=== PATIENT | male | born 1980 | race Two or more races ===

== ENCOUNTER 2019-06-02 00:15 | Emergency (ER) | payer SELFPAY ==
[2019-06-02] MEDS ORDERED: KETOROLAC TROMETHAMINE INJ/PF 30 MG/1 ML SDV IV ONE (02:36)
[2019-06-02] MEDS ORDERED: DEXAMETHASONE SOD PHOS INJ 10 MG/1 ML VIAL IV ONE (02:36)
[2019-06-02] MEDS ORDERED: METHOCARBAMOL INJ/PF 1000 MG/10 ML SDV IV ONE (02:38)
--- NOTE | 2019-06-02 02:39 | ER Document Report ---
ED Neck/Back Problem - General Chief Complaint: Neck Problem Stated Complaint: NECK PAIN Time Seen by Provider: 06/02/19 02:27 Mode of Arrival: Ambulatory Information source: Patient Notes: This 38-year-old man presents to the emergency department with a long history of torticollis with associated muscle spasm and pain. States that for years he has taken Botox shots for relief, however, he is now uninsured and has not had treatment for over a year. He states that he went back to work last week and the symptoms have worsened. He complains of severe pain in the right side of his neck radiating into the upper shoulder area with severe pain with movement. He denies neurologic functional loss or weakness in his lower extremities or incontinence of urine or stool. - Related Data Allergies/Adverse Reactions: venom-honey bee Allergy (Verified 05/23/19 17:02) Past Medical History - Social History Smoking Status: Current Every Day Smoker Family History: Reviewed & Not Pertinent Patient has suicidal ideation: No Patient has homicidal ideation: No Review of Systems - Review of Systems Notes: Constitutional: Negative for fever. HENT: + Neck pain with right shoulder pain Eyes: Negative for visual changes. Cardiovascular: Negative for chest pain. Respiratory: Negative for shortness of breath. Gastrointestinal: Negative for abdominal pain, vomiting or diarrhea. Genitourinary: Negative for dysuria. Musculoskeletal: Negative for back pain. Skin: Negative for rash. Neurological: Negative for headaches, weakness or numbness. 10 point ROS negative except as marked above and in HPI. Physical Exam - Vital signs Vitals: Temp Pulse Resp BP Pulse Ox 98.5 F 88 18 139/83 H 96 06/02/19 00:26 06/02/19 00:26 06/02/19 00:26 06/02/19 00:26 06/02/19 00:26 - Notes Notes: PHYSICAL EXAMINATION: Physical Exam: General: Well-nourished well-developed in no acute distress HEENT: NC/AT, pupils equal round and reactive to light, MM moist,nares clear, oropharynx clear, airway patent Neck: Neck held in a semi-rightward flex, tenderness in the paracervical muscles with tightness in the upper trapezius muscle on the right side tenderness to touch, decreased cervical rotation and flexion and extension of the neck secondary to pain Lungs: clear, no wheezing, no rales no rhonchi CVS: Regular rate and rhythm no murmur gallop or rub Abdomen: Soft, active, nontender, no masses, no hepatosplenomegaly Ext: No edema, clubbing or cyanosis. Neuro: Alert and responsive, moving all 4 extremities on command, cranial nerves intact, no focal findings Skin: Intact no open lesions, no rash PSYCH: Normal mood, normal affect. Course - Re-evaluation Re-evalutation: 06/02/19 04:50 Patient was given IV medications, Decadron, Toradol, Robaxin with some mild relief, however he states that he is continued to have pain. Given the chronicity of the problem, I have attempted to lower his expectation of complete resolution of the pain. He has been given a prescription for an anti- inflammatory and a muscle relaxant and also the name of a neurologist whom he could follow-up. 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 - Vital Signs Vital signs: Temp Pulse Resp BP Pulse Ox 98.5 F 88 18 139/83 H 96 06/02/19 00:26 06/02/19 00:26 06/02/19 00:26 06/02/19 00:26 06/02/19 00:26 Discharge - Discharge Clinical Impression: Torticollis, spasmodic, Muscle spasms of neck Condition: Good Disposition: HOME, SELF-CARE Instructions: Torticollis ([facility]) Additional Instructions: You were treated for torticollis in the emergency room tonight, please take your medications as prescribed, baclofen, Naprosyn. Follow-up with neurologist, a referral was given. You may call for appointment today. HOME CARE INSTRUCTIONS & INFORMATION: Thank you for choosing us for your medical needs. We hope you're satisfied with the care you received. After you l eave, you must properly care for your problem and, at the same time, observe its progress. Any condition can change. Some illnesses can change rapidly over hours or days. If your condition worsens, return to the Emergency Department or see your physician promptly. ABOUT YOUR X-RAYS AND EKG'S: If you had an EKG or X-rays taken, they have been read by the Emergency Physician. The X-rays and EKG's will also be read by a Radiologist or Reversal Print Inspector within 24 hours. If discrepancies are noted, you will be notified by telephone. Please be certain the ED has a correct telephone number & address where you can be reached. Also, realize that some fractures or abnormalities do not show up on initial X-rays. If your symptoms continue, see your physician. ABOUT YOUR LABORATORY TEST: If you had laboratory tests, the results have been reviewed by the Emergency Physician. Some test results (for example cultures) may not be available for several days. You will be contacted if any test result shows you need additional treatment. Please be certain the ED has a correct telephone number and address where you can be reached. ABOUT YOUR MEDICATIONS: You will receive instructions on how to take your medicine on the prescription label you receive. Additional information may be provided by the Pharmacy. If you have questions afterwards, call the ED for clarification or further instructions. Some prescribed medications may cause drowsiness. Do not perform tasks such as driving a car or operating machinery without consulting your Pharmacist. If you feel you need a refill of pain medication, your condition will need re-evaluation. Please do not call for a refill of any medication. ABOUT YOUR SIGNATURE: Signature of this document acknowledges to followin. Understanding that you received emergency treatment and that you may be released before al medical problems are known or treated. Please be certain the ED has a correct phone number & address where you can be reached. 2. Acknowledgement that you will arrange for follow-up care as recommended. 3. Authorization for the Emergency Physician to provide information to your follow-up Physician in order to maximize your care. AT ANY TIME, IF YOUR SYMPTOMS CHANGE SIGNIFICANTLY OR WORSEN OR YOU DEVELOP NEW SYMPTOMS, RETURN TO THE EMERGENCY DEPARTMENT IMMEDIATELY FOR RE-EVALUATION. OUR GOAL IS TO PROVIDE EXCELLENT MEDICAL CARE! WE HOPE THAT WE HAVE MET YOUR EXPECTATIONS DURING YOUR EMERGENCY DEPARTMENT VISIT AND THAT YOU FEEL YOU HAVE RECEIVED EXCELLENT CARE! Prescriptions: Baclofen [Baclofen 10 mg Tablet] 10 mg PO TID #30 tab Naproxen [Naprosyn] 500 mg PO BID #20 tablet
[2019-06-02 05:10] VITALS: BP 114/71
== END 2019-06-02 05:18 | disposition home or self-care (01) ==
LOC: ER 00:15
DX: G24.3 Spasmodic torticollis (principal); M25.511 Pain in right shoulder; F17.200 Nicotine dependence, unspecified, uncomplicated; Z91.030 Bee allergy status
CPT/HCPCS: 99283; 96375; 96365; J2800; J1885; J1100